=== PATIENT | female | born 1980 | race Caucasian/White ===

== ENCOUNTER 2023-10-13 09:23 | Emergency (ER) | payer OTHER, SELFPAY ==
[2023-10-13 09:36] VITALS: BP 130/93
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
== END 2023-10-13 12:17 | disposition home or self-care (01) ==
LOC: EMR 09:23
PROVIDERS: EMERGENCY PHYSICIAN Emergency Medicine; FAMILY PHYSICIAN Physician Assistant Medical
DX: S30.0XXA Contusion of lower back and pelvis, initial encounter (principal); Y04.8XXA Assault by other bodily force, initial encounter; F17.210 Nicotine dependence, cigarettes, uncomplicated
CPT/HCPCS: 99283; 72100

== ENCOUNTER 2024-10-12 20:33 | Emergency (ER) | payer OTHER, SELFPAY ==
[2024-10-12 20:35] VITALS: BP 155/93
[2024-10-12 20:52] LABS: % Basophils 0.6 % (0-2); % Eosinophils 1.3 % (0-6); % Immature Granulocytes 0.2 % (0-0.5); % Monocytes 14.4 % (1.7-9.3); % Neutrophils 46.5 % (42.2-75.2); Absolute Eosinophils 0.1 10^3/uL (0-0.7); Absolute Lymphocytes 2.3 10^3/uL (1.2-3.4); Absolute Monocytes 0.9 10^3/uL (0.1-0.6); Absolute Neutrophils 2.9 10^3/uL (1.4-6.5); Hematocrit 38.2 % (37.0-47.0); Hemoglobin 13.4 g/dL (12.0-16.0); Mean Corp Hgb Conc. 35.1 g/dL (33.0-37.0); Mean Corpuscular Hgb 34.2 pg (27.0-31.0); Mean Corpuscular Volume 97.4 fL (81.0-99.0); Mean Platelet Volume 9.2 fL (7.4-10.4); Nucleated Red Blood Cells % 0 %; Platelet Count 228 10^3/uL (130-400); Red Blood Cell Count 3.92 10^6/uL (4.20-5.40); Red Cell Dist. Width 12.4 % (11.5-14.5); White Blood Cell Count 6.2 10^3/uL (4.8-10.8)
[2024-10-12 21:03] LABS: HCG, Serum Qualitative Screen Negative
[2024-10-12 21:06] LABS: ALT (SGPT) 33 U/L (0-35); AST (SGOT) 52 U/L (14-36); Albumin 4.5 g/dl (3.5-5.0); Alkaline Phosphatase 66 U/L (38-126); Blood Urea Nitrogen 8 mg/dl (7-17); Calcium 9.5 mg/dl (8.4-10.2); Carbon Dioxide 29 mmol/L (22-30); Chloride 103 mmol/L (98-107); Glucose 112 mg/dl (70-99); Potassium 4.1 mmol/L (3.5-5.1); Sodium 139 mmol/L (135-145); Total Bilirubin 0.6 mg/dl (0.2-1.3); eGFR > 60.00
[2024-10-12 23:37] VITALS: BP 142/80
--- NOTE | 2024-10-13 00:39 | ED.GENMED ---
History of Present Illness
General
Chief Complaint: Extremity Pain (non-traumatic)
Source: patient
Exam Limitations: none
Time Seen by Provider: 10/13/24 00:26
History of Present Illness
History of Present Illness:
44yoF with a history of chronic low back pain presenting for evaluation of bilateral leg redness. Patient recently traveled to the [facility] and returned home today. She started to feel unwell about 2 days ago with chills and she noticed
multiple bug bites. She then started to notice that both of her lower legs appeared red in color. Her leg started to feel swollen today. She called her PCP regarding her symptoms and she was referred to the ED for evaluation. She denies any
chest pain, shortness of breath, syncope, fevers. She also has been having numerous 'weird symptoms' over the past several months.
Past History
Past History
ED Past Medical History: None
ED Past Surgical History: None
Social History
Tobacco: Smoker
Alcohol: Occasional
Personal: Single
Living: with family (This with her boyfriend and her son)
Employment: Employed
Phy Exam
General Physical Exam
General Presentation: well appearing and no apparent distress
General age: appears stated age
General Skin: warm and dry
General Habitus: normal
General Mental: alert
ENT Exam
ENT Exam: normocephalic
Pulmonary Exam
Pulmonary Exam: no respiratory distress
Neurological Exam
Neurological Exam: alert
Arlet Coma Scale
Eye Opening: Spontaneous
Verbal Response: Oriented
Motor Response: Obeys Commands
GCS Total Score: 15
Musculoskeletal Exam
Musculoskeletal Exam: other (Faint blanchable erythema noted to bilateral lower extremities. No warmth or tenderness. No pitting edema. 2+ DP pulses bilaterally.)
Skin Exam
Skin Exam: warm/dry
Psychiatric Exam
Psychiatric Exam: normal mood/affect
Course
Orders/Labs/Results
Orders:
Orders
10/12/24 20:39
Electrocardiogram (*1) Urgent
Reason for Study: Vertigo / Dizzy
EKG- Treatment ONCE
Test Result ONCE
10/12/24 20:47
Complete Blood Count/With Diff Urgent
Comprehensive Metabolic Panel Urgent
HCG, Serum Qualitative Screen Urgent
10/13/24 00:37
Venous Doppler Lwr Ext Bilat [US Periph Venous LOWER Ext David] Urgent
Comment:
Reason For Exam: bilateral leg swelling, recent travel
Abnormal Lab Results
10/12/24
20:47
RBC 3.92 L 10^6/uL
(4.20-5.40)
MCH 34.2 H pg
(27.0-31.0)
Absolute Monos (auto) 0.9 H 10^3/uL
(0.1-0.6)
Monocytes % 14.4 H %
(1.7-9.3)
Glucose 112 H mg/dl
(70-99)
AST 52 H U/L
(14-36)
10/12/24 20:47
10/12/24 20:47
Vital Signs
Initial and Last Documented VS:
Initial Vital Signs
Temp Pulse Resp BP Pulse Ox
98.7 F 105 18 155/93 99
10/12/24 20:35 10/12/24 20:35 10/12/24 20:35 10/12/24 20:35 10/12/24 20:35
Last Documented Vital Signs
Temp Pulse Resp BP Pulse Ox
98.3 F 61 18 130/87 99
10/13/24 01:35 10/13/24 01:35 10/13/24 01:35 10/13/24 01:35 10/13/24 01:35
MDM/Problems Addressed
Differential Diagnosis Includes:
44yoF here with bilateral leg redness. [place]. C/o malaise, chills, and leg redness 2 days ago. No fevers. Now feels both her legs are swollen. Multiple bug bites during trip. She is afebrile on arrival. HR 105 in triage. She is well
appearing on exam and non-toxic. There is faint erythema to the lower legs that is blanchable. No warmth to suggest cellulitis and symptoms are bilateral which also makes this unlikely. No pitting edema. Palpable pulses bilaterally. Differential
diagnosis includes but is not limited to: rash from sun exposure, viral illness, nonspecific rash, autoimmune condition, less likely DVT
Initial ED plan: Labs obtained in triage. White count, hemoglobin, and platelets normal. AST 52, remainder of LFTs are normal. Will check venous duplex.
*Critical Care Note
Total Time (30-74mins, 75-104mins- exclusive of procedures): Not Applicable
Update Note
Update Note:
Venous duplex negative for DVT. Temperature remains normal on multiple checks. No indication for hospitalization. Unclear etiology of symptoms. She was encouraged to f/u closely with her PCP and ED return precautions discussed. Patient in agreement
with plan and was discharged in stable condition.
ED Attending Note
-
Portions of this chart may have been created with voice recognition software.� Occasional wrong word or��sound alike� substitutions may have occurred due to the inherent limitations of voice recognition software.
Discharge Plan
Departure
Patient Disposition: Home (Routine Discharge)
Date of Disposition: 10/13/24
Time of Disposition: 02:03
Patient with high blood pressure during this ER visit?: Yes
Discharge Problem:
Rash and nonspecific skin eruption
Instructions: Skin rash - ED discharge instructions
Prescriptions:
No Action
naproxen 250 MG tablet
500 mg PO BIDPRN PRN (Reason: pain)
turmeric 400 MG capsule
400 mg PO DAILY
L.ross,naresh,christo,rhamn [AZO Complete Feminine Balance] 1 EACH capsule
1 ea PO DAILY
pantoprazole 40 MG tablet,delayed release (DR/EC)
40 mg PO DAILY Qty: 14 0RF
Referrals:
Ginette Ho PA-C [Family Provider] -
Activity Restrictions/Additional Instructions:
Please follow-up with your family doctor on Monday. Return to the ER with any new or worsening symptoms.
Interventions
Interventions:
*Risk Screen - Suicide Last Done: 10/12/24 20:35
*General Assessment Last Done: 10/12/24 20:35
*Neglect/Abuse Screening Last Done: 10/13/24 00:40
*ED- Fall Risk Assessment Last Done: 10/13/24 00:40
*ED COVID-19 Vaccine History Last Done: 10/12/24 20:35
*Nursing Disposition Last Done: 10/13/24 02:26
ED-Skin Assessment Last Done: 10/13/24 00:43
ED-Peripheral Vascular Assessment Last Done: 10/13/24 00:43
ED-Musculoskeletal Assessment Last Done: 10/13/24 00:43
Discharge Date and Time
Discharge Date/Time: 10/13/24 02:26
Print Language: CITIZEN [place]
[2024-10-13 01:35] VITALS: BP 130/87
== END 2024-10-13 02:26 | disposition home or self-care (01) ==
LOC: EMR 20:33
PROVIDERS: Emergency Medicine; EMERGENCY PHYSICIAN Emergency Medicine; FAMILY PHYSICIAN Physician Assistant Medical
DX: R21 Rash and other nonspecific skin eruption (principal); F17.200 Nicotine dependence, unspecified, uncomplicated
CPT/HCPCS: 99284; 80053; 84703; 85025; 93005; 93970

== ENCOUNTER → 2024-10-17 11:49 | Outpatient (REF) | payer OTHER, SELFPAY | LOC: HWRAD 11:49 | PROVIDERS: ATTENDING PHYSICIAN Obstetrics & Gynecology; FAMILY PHYSICIAN Physician Assistant Medical | DX: R10.2 Pelvic and perineal pain (principal) | CPT/HCPCS: 76830; 76856 ==

== ENCOUNTER → 2025-05-28 10:19 | Outpatient (REF) | payer OTHER, SELFPAY | LOC: HWRAD 10:19 | PROVIDERS: ATTENDING PHYSICIAN Obstetrics & Gynecology; FAMILY PHYSICIAN Physician Assistant Medical | DX: R10.20 Pelvic and perineal pain unspecified side (principal) | CPT/HCPCS: 76830; 76856 ==